=== PATIENT | male | born 1950 | race Caucasian/White ===

== ENCOUNTER 2025-11-01 05:58 | Emergency (ER) | payer MEDICARE ==
[2025-11-01] MEDS ORDERED: Ketorolac Tromethamine 30 MG (1 mL) VIAL ONE (06:19)
[2025-11-01] MEDS ORDERED: Ondansetron PF 4 MG/2 ML Vial ONE (06:19)
[2025-11-01 06:28] LABS: #Basophils 0.05 10x3/uL (0.0-0.2); #Eosinophils 0.13 10x3/uL (0.0-0.5); #Monocytes 1.80 10x3/uL (0.0-1.1); #Neutrophils 12.47 10x3/uL (1.5-8.4); %Basophils 0.3 % (0.0-2.0); %Eosinophils 0.8 % (0.0-6.0); %Lymphocytes 8.1 % (18.0-47.0); %Monocytes 11.3 % (0.0-10.0); %Neutrophils 78.2 % (40.0-75.0); Hematocrit 48.3 % (38.8-50.0); Hemoglobin 16.6 g/dL (13.5-17.5); Mean Corpuscular Hemoglobin 30.9 pg (27.0-33.0); Mean Corpuscular Volume 89.9 fL (81.2-95.1); Platelet Count 288 10x3/uL (150-450); Red Blood Cell (RBC) Count 5.37 10x6/uL (4.32-5.72); White Blood Cell (WBC) Count 15.94 10x3/uL (3.5-10.5)
[2025-11-01 06:40] LABS: ALT (SGPT) 30 U/L (Less than 45); AST (SGOT) 29 U/L (11-34); Albumin 5.3 g/dL (3.1-4.5); Alkaline Phosphatase 71 U/L (40-110); Anion Gap 24 mmol/L (10-20); BUN (Urea Nitrogen) 28 mg/dL (8.4-25.7); Bilirubin, Total 1.7 mg/dL (0.3-1.2); Calc. Creatinine Clearance 0 mL/min (70-130); Calcium 10.8 mg/dL (7.8-10.44); Carbon Dioxide 23 mmol/L (23-31); Chloride 98 mmol/L (98-107); Globulin 2.9 g/dL (2.4-3.5); Glucose 135 mg/dL (83-110); Lipase 20 U/L (8-78); Magnesium 1.8 mg/dL (1.6-2.6); Potassium 4.6 mmol/L (3.5-5.1); Sodium 140 mmol/L (136-145)
[2025-11-01 06:46] LABS: Troponin I Less than 0.010 ng/mL (< 0.028)
== END 2025-11-01 09:00 | disposition home or self-care (01) ==
LOC: CSHERS 05:58
DX: N17.9 Acute kidney failure, unspecified (principal); R11.2 Nausea with vomiting, unspecified; E86.0 Dehydration
CPT/HCPCS: 71045; 80053; 83690; 83735; 83880; 84484; 85025; 93005; J1885; 96361; 96374; 96375; J2405